=== PATIENT | male | born 1975 | race Caucasian/White ===

== ENCOUNTER 2018-03-12 07:23 | Emergency (ER) | payer OTHER ==
[~2018-03-12] VITALS: Ht 198.1 cm; Wt 108.9 kg
[2018-03-12] MEDS ORDERED: CHLORDIAZEPOXID10 MG PO (07:55)
[2018-03-12 09:07] VITALS: BP 130/68
== END 2018-03-12 09:11 | disposition home or self-care (01) ==
LOC: ER 07:23
DX: T69.9XXA Effect of reduced temperature, unspecified, initial encounter (principal); F10.188 Alcohol abuse with other alcohol-induced disorder; R56.9 Unspecified convulsions; F17.210 Nicotine dependence, cigarettes, uncomplicated

== ENCOUNTER 2018-04-27 23:41 | Emergency (ER) | payer OTHER ==
[~2018-04-27] VITALS: Ht 193 cm; Wt 102.1 kg
[~2018-04-27 23:41] MED LIST: CHLORDIAZEPOXID10 MG PO
[2018-04-28 04:41] VITALS: BP 106/58
== END 2018-04-28 04:42 | disposition home or self-care (01) ==
LOC: ER 23:41
DX: F10.129 Alcohol abuse with intoxication, unspecified (principal); F17.210 Nicotine dependence, cigarettes, uncomplicated; Z88.8 Allergy status to other drugs, medicaments and biological substances

== ENCOUNTER 2019-11-05 09:04 | Emergency (ER) | payer OTHER ==
[~2019-11-05] VITALS: Ht 198.1 cm; Wt 108.9 kg
[2019-11-05] MEDS ORDERED: INDERAL LA120 M1 PO ×2 (09:15)
[2019-11-05 09:16] VITALS: BP 122/79
[2019-11-05] MEDS ORDERED: LISINOPRIL-HCT1 EAC1 PO (09:16)
== END 2019-11-05 10:00 | disposition home or self-care (01) ==
LOC: ER 09:04
DX: F10.20 Alcohol dependence, uncomplicated (principal); I10 Essential (primary) hypertension; G43.909 Migraine, unspecified, not intractable, without status migrainosus; F41.9 Anxiety disorder, unspecified; F17.210 Nicotine dependence, cigarettes, uncomplicated; Z88.8 Allergy status to other drugs, medicaments and biological substances; Y90.9 Presence of alcohol in blood, level not specified

== ENCOUNTER 2019-11-11 23:10 | Emergency (ER) | payer OTHER ==
[~2019-11-11] VITALS: Ht 198.1 cm; Wt 104.3 kg
[~2019-11-11 23:10] MED LIST changes: +INDERAL LA120 M1 PO; +LISINOPRIL-HCT1 EAC1 PO
[2019-11-12 06:04] VITALS: BP 132/88
== END 2019-11-12 06:06 | disposition home or self-care (01) ==
LOC: ER 23:10
DX: F10.129 Alcohol abuse with intoxication, unspecified (principal); I10 Essential (primary) hypertension; G43.909 Migraine, unspecified, not intractable, without status migrainosus; F41.9 Anxiety disorder, unspecified; F17.210 Nicotine dependence, cigarettes, uncomplicated; Z88.8 Allergy status to other drugs, medicaments and biological substances

== ENCOUNTER 2020-09-26 13:50 | Emergency (ER) | payer OTHER ==
[~2020-09-26] VITALS: Ht 198.1 cm; Wt 108.9 kg
[2020-09-26] MEDS ORDERED: METHYLPHENIDATE10 M2 PO (14:10)
[2020-09-26 15:32] LABS: ABSOLUTE NEUTROPHILS 4.8 thou/uL (1.4-8.2); BASOPHILS 0.6 % (0.0-2.0); EOSINOPHILS 7.6 % (0.0-3.0); HEMATOCRIT 41.5 % (42.0-52.0); HEMOGLOBIN 14.1 gm/dL (14.0-18.0); LYMPHOCYTES 15.2 % (24.0-44.0); MCH 31.7 pg (26.0-34.0); MCV 93.2 fL (80.0-100.0); PLATELET COUNT 213 thou/uL (150-400); POLYS 67.6 % (36.0-66.0); RBC 4.46 mil/uL (4.50-6.00); RDW 13.4 % (10.5-14.5); WBC 7.1 thou/uL (4.0-11.0)
[2020-09-26] MEDS ORDERED: DOXYCYCLINE 10100 MG PO (16:05)
[2020-09-26 16:29] VITALS: BP 126/82
== END 2020-09-26 16:06 | disposition home or self-care (01) ==
LOC: ER 13:50
PROVIDERS: Nurse Practitioner
DX: L03.116 Cellulitis of left lower limb (principal); I10 Essential (primary) hypertension; F17.210 Nicotine dependence, cigarettes, uncomplicated; G43.909 Migraine, unspecified, not intractable, without status migrainosus; Z79.899 Other long term (current) drug therapy; Z88.8 Allergy status to other drugs, medicaments and biological substances

== ENCOUNTER → 2020-10-10 | Outpatient (CLI) | payer OTHER ==
[~2020-10-10] MED LIST changes: +ASA5UEC PO; +DOXYCYCLINE 10100 MG PO; +FOLIC ACID1 MG PO; +LISINOPRIL10 MG PO; +METHYLPHENIDATE10 M2 PO; +NORCO 7.5-3251 EACH PO; +PRENATAL PO; +PROPRANOLOL 8080 MG PO; +PROTONIX 20 MG20 MG PO; +VITAMIN B-1100 M2 PO; +VITAMIN B-12500 MCG PO; +XANAX 0.5 MG0.5 M1 PO
== END ==
LOC: HYPER 14:04
PROVIDERS: ATTEND Emergency Medicine Emergency Medical Services
DX: L03.116 Cellulitis of left lower limb (principal); I10 Essential (primary) hypertension; F10.10 Alcohol abuse, uncomplicated; F17.200 Nicotine dependence, unspecified, uncomplicated; F41.9 Anxiety disorder, unspecified; F32.9 Major depressive disorder, single episode, unspecified

== ENCOUNTER → 2020-11-06 | Outpatient (CLI) | payer OTHER | LOC: HYPER 08:26 | PROVIDERS: ATTEND Emergency Medicine Emergency Medical Services | DX: L03.116 Cellulitis of left lower limb (principal); L97.321 Non-pressure chronic ulcer of left ankle limited to breakdown of skin; I10 Essential (primary) hypertension; G43.909 Migraine, unspecified, not intractable, without status migrainosus; F10.10 Alcohol abuse, uncomplicated; F41.9 Anxiety disorder, unspecified; F32.9 Major depressive disorder, single episode, unspecified; F17.200 Nicotine dependence, unspecified, uncomplicated ==

== ENCOUNTER → 2020-12-31 | Outpatient (CLI) | payer OTHER | LOC: HYPER 10:08 | PROVIDERS: ATTEND Emergency Medicine Emergency Medical Services | DX: L97.321 Non-pressure chronic ulcer of left ankle limited to breakdown of skin (principal); L03.116 Cellulitis of left lower limb; S90.415D Abrasion, left lesser toe(s), subsequent encounter; R21 Rash and other nonspecific skin eruption; G43.909 Migraine, unspecified, not intractable, without status migrainosus; I10 Essential (primary) hypertension; F10.10 Alcohol abuse, uncomplicated; F41.9 Anxiety disorder, unspecified; F32.9 Major depressive disorder, single episode, unspecified; F17.200 Nicotine dependence, unspecified, uncomplicated; X58.XXXD Exposure to other specified factors, subsequent encounter ==

== ENCOUNTER → 2021-01-08 | Outpatient (CLI) | payer OTHER ==
[~2021-01-08] MED LIST changes: +ASPIRIN EC325 M1 PO; +B COMPLEX1 EACH PO; +LISINOPRIL20 MG PO; +MULTI VITAMIN1 EACH PO; +ZOLOFT 50 MG TA50 MG PO
== END ==
LOC: LAB 12:01
PROVIDERS: ATTEND Orthopaedic Surgery Foot and Ankle Surgery
DX: Z01.812 Encounter for preprocedural laboratory examination (principal); Z20.822 Contact with and (suspected) exposure to COVID-19

== ENCOUNTER 2021-01-11 07:52 | Day surgery (SDC) | payer OTHER ==
[~2021-01-11] VITALS: Ht 198.1 cm; Wt 110.7 kg
[2021-01-11 08:20] VITALS: BP 111/78
[2021-01-11] MEDS ORDERED: AUGMENTIN 875-1 EACH PO (10:05)
[2021-01-11] MEDS ORDERED: PERCOCET 7.5-31 EAC1 PO (10:05)
[2021-01-11 10:41] VITALS: BP 111/78
[2021-01-11 10:43] VITALS: BP 111/78
--- NOTE | 2021-01-13 08:23 | O ---
[facility] [place] [address] OPERATIVE REPORT Name: KESHA WILLIAMSON Room #: DEP [facility]..#: [id number] Admission: 01/11/21 Attend Phys: Víctor Romero MD Discharge: 01/11/21 Date of : 73 Report #: [id number] THIS REPORT FOR: cc: NINA - Deborah family physician/PCP NINA - Deborah family physician/PCP Víctor Romero MD ~ DATE OF SERVICE: 01/11/2021 PREOPERATIVE DIAGNOSIS: Left ankle retained painful hardware. POSTOPERATIVE DIAGNOSIS: Left ankle retained painful hardware. PROCEDURE: Left ankle hardware removal. SURGEON: Dr. Víctor Romero. ACTIVE DIRECTORY ARCHITECT: Glendy Naranjo. ANESTHESIA: General. ESTIMATED BLOOD LOSS: Minimal. DRAINS: No drains. TOURNIQUET TIME: 30 minutes. DESCRIPTION OF PROCEDURE: The patient brought to the operating room where he was placed under general anesthesia. Once under adequate general anesthesia, his left lower extremity was prepped and draped in sterile manner. The extremity was elevated and a tourniquet placed to 250 mmHg. Utilizing fluoroscopy for guidance, the heads of the lateral 5 screws and the fibular plate were identified and localized small incisions were made overlying these and once these were exposed, these were extracted with the small fragment screwdriver. The one-third tubular plate was then freed from the surrounding soft tissue with a grubbs elevator and the plate was removed utilizing a hemostat. Fluoroscopy was used once again to localize the 3 screw heads for the 4.0 cannulated screws and through 2 small stab incisions. The anterior to posterior, 4.0 cannulated screw was removed through one of the incisions and the medial two screws were removed through a separate small stab incision over the guidewires that were placed under fluoroscopic guidance. The screwdriver was then utilized to remove the hardware and once complete, the wounds were irrigated copiously and closed with 2-0 Vicryl and the subcutaneous tissues and price were used for the skin. The wounds were dressed with Xeroform, 4 x 4s, and sterile soft compressive dressing was placed. Tourniquet was let down at approximately 30 minutes. Toes were pink and warm with good capillary refill. [facility] [address] [place] [address] OPERATIVE REPORT Name: IDA WILLIAMSONIN Room #: DEP [facility].#: [id number] Admission: 01/11/21 Attend Phys: Víctor Romero MD Discharge: 01/11/21 Date of : 73 Report #: [id number] There were no complications from the procedure. The patient tolerated the procedure well and went to recovery room without incident. <ELECTRONICALLY SIGNED> By: Víctor Romero MD 01/13/21 0823 1010 1030 Víctor Romero MD /nt
== END 2021-01-11 11:15 | disposition home or self-care (01) ==
LOC: OR 07:52 → TBA 07:53 → OR 11:15
PROVIDERS: ATTEND Orthopaedic Surgery Foot and Ankle Surgery
DX: T84.84XA Pain due to internal orthopedic prosthetic devices, implants and grafts, initial encounter (principal); M25.572 Pain in left ankle and joints of left foot; I10 Essential (primary) hypertension; G43.909 Migraine, unspecified, not intractable, without status migrainosus; F32.9 Major depressive disorder, single episode, unspecified; F41.9 Anxiety disorder, unspecified; Z98.890 Other specified postprocedural states; Z79.899 Other long term (current) drug therapy; Z88.8 Allergy status to other drugs, medicaments and biological substances
CPT/HCPCS: 50010; 50101; 50386; 51412; 56524; 57091; 57180; 62110; 62900; 70005

== ENCOUNTER → 2021-04-01 | Outpatient (CLI) | payer OTHER ==
[~2021-04-01] MED LIST changes: +AUGMENTIN 875-1 EACH PO; +PERCOCET 7.5-31 EAC1 PO
== END ==
LOC: HYPER 07:42
PROVIDERS: ATTEND Emergency Medicine Emergency Medical Services
DX: L97.321 Non-pressure chronic ulcer of left ankle limited to breakdown of skin (principal); L03.116 Cellulitis of left lower limb; S90.415D Abrasion, left lesser toe(s), subsequent encounter; R21 Rash and other nonspecific skin eruption; G43.909 Migraine, unspecified, not intractable, without status migrainosus; I10 Essential (primary) hypertension; F10.10 Alcohol abuse, uncomplicated; F41.9 Anxiety disorder, unspecified; F32.9 Major depressive disorder, single episode, unspecified; F17.200 Nicotine dependence, unspecified, uncomplicated; X58.XXXD Exposure to other specified factors, subsequent encounter

== ENCOUNTER → 2021-04-15 | Outpatient (CLI) | payer OTHER | LOC: HYPER 07:51 | PROVIDERS: ATTEND Emergency Medicine Emergency Medical Services | DX: L97.321 Non-pressure chronic ulcer of left ankle limited to breakdown of skin (principal); L03.116 Cellulitis of left lower limb; S90.415D Abrasion, left lesser toe(s), subsequent encounter; R21 Rash and other nonspecific skin eruption; G43.909 Migraine, unspecified, not intractable, without status migrainosus; I10 Essential (primary) hypertension; F10.10 Alcohol abuse, uncomplicated; F41.9 Anxiety disorder, unspecified; F32.9 Major depressive disorder, single episode, unspecified; F17.200 Nicotine dependence, unspecified, uncomplicated; X58.XXXD Exposure to other specified factors, subsequent encounter ==